=== PATIENT | male | born 1980 | race Caucasian/White ===

== ENCOUNTER → 2020-03-19 | Outpatient (RCR) | payer OTHER ==
--- NOTE | 2020-03-03 12:01 | RADONC ---
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 We will be simulating him for continuation of his concurrent chemoradiation treatment here. He has previously received induction chemo, 2 cycles of CAP, followed by 3 cycles of cis/david last 01/23/20. He started concurrent chemoradiation at [facility] and received 3 fractions (6 Gy) last on 02/29/20 prior to deciding to transfer to [facility] due to the travel distance being prohibitive. Diagnosis/Treatment History Oncologic History Briefly, presented to medical attention in September 2019 with facial swelling and SOB, CT chest was done which showed a large anterior mediastinal mass and regional adenopathy. EBUS done on 10/19/19 revealed SCC concerning for thymic carcinoma. He was deemed inoperable at [facility]. He completed 5 total cycles of chemotherapy last on 01/23/20. He was restaged and a concerning cervical node was biopsied and proven benign. He was again deemed unresectable and therefore was planned for chemoradiation. Planned to go to 66 Gy in 33 fractions with VMAT and concurrent doublet. He received 6 Gy in 3 fractions in [place] prior to transfer here. He will continue chemotherapy in [place]. He was simulated today 03/03/20 with plan to continue per the original [facility] plan here. Interval History Feels tired. Has orthopnea and facial swelling ongoing stable. No hoarseness, no syncope. Able to swallow, appetite and weight stable. Current Therapy Chemoradiation as above Stage [id number] Stage RUTH thymic carcinoma (SCC) Social History: 20 pk year current smoker 2 drinks per week Allergies / Meds Allergies: Coded Allergies: No Known Allergies (Unverified , 03/03/20) Home Meds Reported Medications Escitalopram Oxalate (Lexapro) 10 Mg Tablet, 1 TAB PO DAILY for 30 Days, #30 TAB 03/03/20 Hydroxyzine HCl (Hydroxyzine HCl) 25 Mg Tablet, 25 MG PO QPMP PRN for SLEEP, TAB 03/03/20 Review of Systems Review of Systems Constitutional: Denies: ROS Unabtainable, Chills, Fever, Malaise, Night Sweats, Weakness, Fatigue, Weight Loss, Lethargy, Normal appetite, Other symptoms Eyes: Denies: Pain, Vision change, Conjunctivae inflammation, Eyelid inflammation, Redness, Other HEENT: Denies: Head Aches, Ear Pain, Dysphagia, Sinus Congestion, Post Nasal Drip, Sore Throat, Epistaxis, Other Symptoms Skin: Denies: Rash, Lesions, Jaundice, Bruising, Other Pulmonary: Reports: Dyspnea, Cough; Denies: Pleuritic Chest Pain, Other Symptoms Cardiovascular: Reports: Orthopnea; Denies: Chest Pain, Palpitations, Paroxysmal Noc. Dyspnea, Edema, Lt Headedness, Other Symptoms Gastrointestinal: Denies: Nausea, Vomiting, Abdominal Pain, Diarrhea, Constipation, Melena, Hematochezia, Other Symptoms Hematologic: Denies: Bruising, Bleeding Excessively, Petecchia, Purpura, Enlarged Lymph Nodes, Other Hematologic Endocrine: Denies: Polydipsia, Polyphagia, Polyuria, Heat Intolerance, Cold Intolerance, Other Endocrine Sx Musculoskeletal: Denies: Neck pain, Shoulder pain, Arm pain, Back pain, Hand pain, Leg pain, Foot pain, Joint pain, Muscle pain, Spasms, Gout, Joint sweling, Muscle stiffness, Midthoracic pain, Other Neurological: Denies: Weakness, Numbness, Incoordination, Change in Speech, Confusion, Seizures, Other Symptoms Psych: Denies: Mood Normal, Anxiety, Depression, Memory Issues, Thoughts of Self Harm, Anger, Thoughts of harming Other, Other Psych Physical Examination Vital Signs Not done General Exam: Positive: Alert, Cooperative Eye Exam: Positive: PERRLA, EOMI ENT EXAM: Positive: Pharynx Normal, Other ENT (Facial plethora) Neck Exam: Negative: Lymphadenopathy Chest Exam: Positive: Clear to auscultation, Normal air movement Heart Exam: Positive: Rate Normal, Regular Rhythm Abdomen Exam: Positive: Normal bowel sounds, Soft; Negative: Tenderness Extremity Exam: Negative: Edema Skin Exam: Positive: Nl turgor and temperature Neuro Exam: Positive: Normal Gait, Normal Speech, Cranial Nerves 3-12 NL Psych Exam: Positive: Mental status NL, Mood NL, Anxiety Diagnostic and Laboratory Diagnostic Review Radiologic images, relevant labs and pathology reports were personally reviewed and discussed with Mr. Tinajero. Assessment and Plan Impression Assessment Mr. 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 We will be simulating him for continuation of his concurrent chemoradiation treatment here. He has previously received induction chemo, 2 cycles of CAP, followed by 3 cycles of cis/davdi last 01/23/20. He started concurrent chemoradiation at [facility] and received 3 fractions (6 Gy) last on 02/29/20 prior to deciding to transfer to [facility] due to the travel distance being prohibitive. Performance Status ECOG 1 Plan Simulation today plan to continue as per [facility] RT plan to 66 Gy in 33 fractions w/ VMAT. We should be able to beam match with their [facility]. I will personally edit the contours as appropriate with our new set up. Will receive chemotherapy at [facility]. No immediate concern for SVC symptoms which have been ongoing. Reviewed side effects of treatment. Informed consent for treatment here obtained. Will re-start RT in next 2 days. I will follow him here with a CT chest in 3 months time post-RT Mr. Tinajero was encouraged to call with questions or concerns in the interim period. cc SANDRA Berrios MD Mar 03, 2020 12:01
[~2020-03-19] MED LIST: ACET-897 PO; DECA4TAB PO; ELIQ5TAB PO; GLIP5TAB20 PO; HYDR-3363 PO; LEXA1TAB PO; [UNRECOGNIZED DRUG - OTHER] SC
== END ==
LOC: M ONCR 03-03 11:02
PROVIDERS: ATTEND General Practice
DX: C37 Malignant neoplasm of thymus (principal)

== ENCOUNTER 2020-03-20 09:58 | Emergency (ER) | payer OTHER ==
[~2020-03-20] VITALS: Ht 180.3 cm; Wt 134.6 kg
--- NOTE | 2020-03-20 10:58 | REPVR ---
PROCEDURE INFORMATION: Exam: XR Right Ankle Exam date and time: 03/20/2020 10:43 AM Age: 39 years old Clinical indication: Injury or trauma; Fall; Sprain or strain; Ankle; Right TECHNIQUE: Imaging protocol: XR Right ankle. Views: 3 or more views. COMPARISON: No relevant prior studies available. FINDINGS: Bones/joints: Oblique fracture involving the distal fibular metaphysis with mild diastasis and minimal posterior displacement. No significant angulation deformity. Bones are otherwise intact with preservation of the ankle mortise. No dislocation. Calcaneal spurring. Soft tissues: Generalized soft tissue swelling. IMPRESSION: Oblique fracture involving the distal fibular metaphysis. Electronically signed by: Jacob Crenshaw On 03/20/2020 10:57:59 AM
[2020-03-20 12:15] VITALS: BP 150/92
== END 2020-03-20 12:17 | disposition home or self-care (01) ==
LOC: M ED 09:58
DX: S82.434A Nondisplaced oblique fracture of shaft of right fibula, initial encounter for closed fracture (principal); X50.1XXA Overexertion from prolonged static or awkward postures, initial encounter; Y92.098 Other place in other non-institutional residence as the place of occurrence of the external cause; Z79.899 Other long term (current) drug therapy

== ENCOUNTER 2020-04-18 08:43 | Outpatient (RCR) | payer OTHER ==
--- NOTE | 2020-03-20 10:00 | MEDONCPDOC ---
Med Onc Office Note.txt Date of Visit Mar 20, 2020 Office Note Briefly Mr. Tinajero is a 39 year old man with a diagnosis of T3N1M0 thymic carcinoma, he presented with SVC syndrome sub-acutely. He has been undergoing chemoradiation treatment for this, briefly at [facility], prior to transferring his care here, due to the travel distance. He is at 42 Gy of a planned 66 Gy in 2 Gy daily fractions, he has been receiving concurrent kletsel dehe wintun doublet chemotherapy. He has been struggling with what I believe is right heart failure and near- syncopal events due to tumor obstructing the SVC. He has had multiple falls at home from near-syncopal events and has noted not only facial plethora (which is increasing in time) but also anasarca, which has come on steadily in recent weeks. He was started on lasix by his PCP last week at 40 mg daily, he continued to retain significant fluid and swelling increased. I increased the dose to 80 mg BID for the past 3 days concluding on Tuesday and there was some improvement with this in LE edema particularly. He has taken 80 mg lasix today. Cr from 03/17/20 was WNL. He is anticoagulated on eliquis. I saw him today after radiation treatment as our therapists noted he fell attempting to get on our treatment table. He told me he feels lousy, he has 9/10 pain in his right leg, which now is swollen > left and painful when he moves his foot. He has no hoarseness. He has CASTILLO and orthopnea. On exam he has a positive Charlotte's sign on the right. 2+ edema RLE, 1+ LLE, 1+ edema BL UE, facial plethora. I am concerned for his safety given the near syncope and falling. He is concerned as well. I think his current condition warrants ED evaluation and likely admission. His pain in the leg may be due to clot. His fluid status should be assessed formally and he may benefit continued aggressive diuresis. I suspect he has pulmonary edema. He also should undergo an echocardiogram to assess right heart function and the degree of SVC obstruction. A formal opinion from either vascular surgery or interventional radiology on the utility of SVC stenting in this case may be appropriate as SVC stenting in select patients has been useful for symptom relief. I will continue to follow him and we can continue his radiation while he is in the hospital, which ultimately is his best chance for cure and watermelon inspector symptom relief if the tumor responds to therapy. CC TO: Primary Care Provider: PCP,Unknown Referring Provider: SANDRA SANTAMARIA MD Mar 20, 2020 10:00
[2020-03-24 13:03] LABS: BASO % 0.3 % (0.0-1.0); EOS # 0.3 10^3/uL (0.0-0.5); EOS % 4.7 % (0.0-3.0); HEMATOCRIT 42.6 % (42.0-52.0); HEMOGLOBIN 13.5 g/dl (13.5-17.5); LYMPH # 0.6 10^3/uL (1.5-5.0); LYMPH % 9.7 % (24.0-44.0); MEAN CORPUSCULAR HEMOGLOBIN 31.4 pg (27.0-33.0); MEAN CORPUSCULAR HGB CONC 31.7 g/dl (32.0-36.5); MEAN CORPUSCULAR VOLUME 99.1 fl (80.0-96.0); MONO # 0.5 10^3/uL (0.0-0.8); MONO % 9.2 % (0.0-5.0); NEUTROPHILS # 4.4 10^3/uL (1.5-8.5); NEUTROPHILS % 75.9 % (36.0-66.0); PLATELET COUNT, AUTOMATED 172 10^3/uL (150-450); WHITE BLOOD COUNT 5.8 10^3/uL (4.0-10.0)
[2020-03-24 13:24] LABS: ALBUMIN 3.6 GM/DL (3.2-5.2); ALT/SGPT 46 U/L (12-78); BILIRUBIN,TOTAL 0.3 MG/DL (0.2-1.0); BLOOD UREA NITROGEN 18 MG/DL (7-18); CALCIUM LEVEL 9.4 MG/DL (8.5-10.1); CARBON DIOXIDE LEVEL 30 MEQ/L (21-32); CHLORIDE LEVEL 108 MEQ/L (98-107); CREATININE FOR GFR 0.71 MG/DL (0.70-1.30); GLOMERULAR FILTRATION RATE > 60.0 (>60); GLUCOSE, FASTING 128 MG/DL (70-100); POTASSIUM SERUM 4.2 MEQ/L (3.5-5.1); SODIUM LEVEL 141 MEQ/L (136-145)
== END 2020-04-19 ==
LOC: M ONCR 08:43
PROVIDERS: ATTEND General Practice
DX: C37 Malignant neoplasm of thymus (principal)

== ENCOUNTER 2020-06-26 12:05 | Emergency (ER) | payer OTHER ==
[~2020-06-26] VITALS: Ht 177.8 cm; Wt 135.8 kg
[2020-06-26] MEDS ORDERED: ADME100I2 (12:24)
[2020-06-26] MEDS ORDERED: TORS20TA2 (12:24)
[2020-06-26] MEDS ORDERED: ATIV1TAB10 (12:24)
[2020-06-26] MEDS ORDERED: ONDA8TAB10 (12:24)
[2020-06-26 16:30] VITALS: BP 136/88
== END 2020-06-26 16:33 | disposition home or self-care (01) ==
LOC: M ED 12:05
DX: F41.9 Anxiety disorder, unspecified (principal); C37 Malignant neoplasm of thymus; I47.1 Supraventricular tachycardia; E11.9 Type 2 diabetes mellitus without complications; F17.200 Nicotine dependence, unspecified, uncomplicated; Z79.899 Other long term (current) drug therapy; Z79.01 Long term (current) use of anticoagulants; Z79.4 Long term (current) use of insulin

== ENCOUNTER → 2020-08-06 | Outpatient (CLI) | payer OTHER ==
[~2020-08-06] MED LIST changes: +ADME100I2; +ATIV1TAB10; +ONDA8TAB10; +SODIUM CHLORIDE 0.9% INJ 10 ML SYR IV PRN; +TORS20TA2; +TORS20TA2 PO
[2020-08-06 14:28] LABS: BASO % 0.3 % (0.0-1.0); EOS # 0.1 10^3/uL (0.0-0.5); EOS % 1.9 % (0.0-3.0); HEMATOCRIT 40.3 % (42.0-52.0); HEMOGLOBIN 12.8 g/dl (13.5-17.5); LYMPH # 0.9 10^3/uL (1.5-5.0); LYMPH % 11.7 % (24.0-44.0); MEAN CORPUSCULAR HEMOGLOBIN 29.3 pg (27.0-33.0); MEAN CORPUSCULAR HGB CONC 31.8 g/dl (32.0-36.5); MEAN CORPUSCULAR VOLUME 92.2 fl (80.0-96.0); MONO # 0.7 10^3/uL (0.0-0.8); MONO % 9.6 % (2.0-8.0); NEUTROPHILS # 5.6 10^3/uL (1.5-8.5); NEUTROPHILS % 76.4 % (36.0-66.0); PLATELET COUNT, AUTOMATED 317 10^3/uL (150-450); RED BLOOD COUNT 4.37 10^6/uL (4.30-6.10); WHITE BLOOD COUNT 7.4 10^3/uL (4.0-10.0)
[2020-08-06 15:05] LABS: ALBUMIN 3.7 GM/DL (3.2-5.2); ALT/SGPT 39 U/L (12-78); BILIRUBIN,TOTAL 0.2 MG/DL (0.2-1.0); BLOOD UREA NITROGEN 18 MG/DL (7-18); CALCIUM LEVEL 9.5 MG/DL (8.5-10.1); CARBON DIOXIDE LEVEL 30 MEQ/L (21-32); CHLORIDE LEVEL 103 MEQ/L (98-107); CHOLESTEROL RISK RATIO 4.405 (<5); CREATININE FOR GFR 0.82 MG/DL (0.70-1.30); FREE T4 1.13 NG/DL (0.76-1.46); GLOMERULAR FILTRATION RATE > 60.0 (>60); GLUCOSE, FASTING 142 MG/DL (70-100); POTASSIUM SERUM 3.4 MEQ/L (3.5-5.1); SODIUM LEVEL 138 MEQ/L (136-145); THYROID STIMULATING HORMONE 1.38 uIU/ML (0.358-3.740); TOTAL PROTEIN 8.5 GM/DL (6.4-8.2)
--- NOTE | 2020-08-06 15:26 | RADONC ---
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 He received induction chemotherapy at [facility], 2 cycles of CAP and 3 cycles of cisplatin/etoposide last on 01/23/20. He began chemoradiation at [facility] but transferred care to [facility] due to prohibitive distance. He completed 66 Gy in 33 fractions to the mediastinal disease on 04/18/20 (6 Gy in 3 fractions received at [facility] prior to transfer). He received carbo/taxol weekly with radiation. Diagnosis/Treatment History Oncologic History Presented to medical attention in September 2019 with facial swelling and SOB, CT chest was done which showed a large anterior mediastinal mass and regional adenopathy. EBUS done on 10/19/19 revealed SCC concerning for thymic carcinoma [id number] stage RUTH. He was deemed inoperable at [facility]. He completed 5 total cycles of chemotherapy last on 01/23/20. He was restaged and a concerning cervical node was biopsied and proven benign. He was again deemed unresectable and therefore was planned for chemoradiation. Planned to go to 60 Gy in 30 fractions with VMAT and concurrent doublet. He received 6 Gy in 3 fractions in [place] prior to transfer here. He was simulated 03/03/20 with plan to continue per the original [facility] volumes here, dose however increased to 66 Gy in 33 fractions total. Treatment resumed 03/10/20-04/18/20. His course was complicated by anasarca from his SVC syndrome requiring diuretics, as well as left ankle fracture secondary to a mechanical fall. He considered enrolling on a trial at the [facility] but ultimately decided against. He consulted with medical oncology (Dr. Duque) at [facility] on 04/25/20 and the recommendation was for close surveillance post chemoradiation with consideration of octreoscan to see if octreotide is indicated, or targeted therapy if [facility] CDx shows actionable alteration as we order now (do not have results in [facility] records, would have to request). Further chemotherapy option includes gemcitabine. Cautious with pembrolizumab/durvalumab. Recent Data: 07/29/20 CT chest abdomen pelvis ([facility]) Interval decrease in size of involved mediastinal nodes. Largest right paratracheal 2.9 x 2.6 cm (from 3.4 x 3.5 cm on 03/03/20 CT) Primary anterior mediastinal mass is relatively stable compared to priors from Fall 2019 No evidence of infradiaphragmatic disease Interval History Vijay is here alone today. Reports he had COVID in June 2020, did not have pulmonary symptomatology but did lose taste and smell sensations felt fatigued for several weeks. Has not established with cardiology. Notes ongoing facial swelling, no voice changes, or dysphagia. No syncope. He has been experiencing poor sleep and sleep walking, excessive daytime tiredness. Frequent interrupted sleep at night. Is able to sleep recumbent, prior to treatment was only able to sleep in chair upright. He has no pain in the chest or neck. His odynophagia is resolved. He had a sleep study scheduled by PCP, which was put off due to COVID. He has poor appetite. Continues on torsemide 60 mg daily. Current Therapy Surveillance Stage Stage RUTH thymic carcinoma [id number] stage RUTH Social History: 20 pack year current smoker 2 alcoholic drinks per week Allergies / Meds Allergies: Coded Allergies: No Known Allergies (Unverified , 03/03/20) Home Meds Active Scripts Torsemide (Torsemide) 20 Mg Tablet, 60 MG PO DAILY, #90 TAB 3 Refills Prov:SANDRA SANTAMARIA MD 08/01/20 Reported Medications Ondansetron HCl (Ondansetron HCl) 8 Mg Tablet 06/26/20 Lorazepam (Ativan) 0.5 Mg Tablet 06/26/20 Insulin Lispro (Admelog Solostar) 100 Unit/1 Ml Insuln.pen, 10 UNITS DAILY 06/26/20 Acetaminophen (Tylenol Extra Strength) 500 Mg Tablet, 1000 MG PO, TAB 03/17/20 Glipizide (Glipizide ER) 5 Mg Tab.er.24, 1 MG PO DAILY, TAB 03/17/20 Apixaban (Eliquis) 5 Mg Tablet, 5 MG PO DAILY, TAB 03/17/20 Escitalopram Oxalate (Lexapro) 10 Mg Tablet, 25 MG PO DAILY for 30 Days, #30 TAB 03/03/20 Review of Systems Review of Systems Constitutional: Reports: Malaise, Fatigue; Denies: Chills, Fever, Night Sweats Eyes: Denies: Pain, Vision change HEENT: Denies: Head Aches, Dysphagia, Sore Throat Skin: Denies: Rash Pulmonary: Reports: Dyspnea; Denies: Cough, Pleuritic Chest Pain Cardiovascular: Reports: Edema; Denies: Chest Pain, Palpitations, Orthopnea, Lt Headedness Gastrointestinal: Denies: Nausea, Vomiting, Abdominal Pain Hematologic: Denies: Bruising Musculoskeletal: Denies: Neck pain, Back pain Neurological: Denies: Weakness, Numbness, Change in Speech Psych: Reports: Mood Normal Physical Examination Vital Signs Ht 71" Wt 273 lbs (from 295 pm 04/07/20) T 98 P 110 RR 20 BP 119/82 O2 97% Pain 0 Fatigue 1 General Exam: Positive: Alert, Cooperative; Negative: No Acute Distress Eye Exam: Positive: PERRLA, EOMI ENT EXAM: Positive: Mucous membr. moist/pink, Pharynx Normal; Negative: Atraumatic (There is right lateral tongue healed laceration (said he bit his tongue)), Pharyngeal Edema Neck Exam: Positive: JVD, +2 carotid pulse wo bruit (There is facial and neck plethora, marked JVD. The edema in the neck is not pitting. ), Other; Negative: Thyromegaly, Lymphadenopathy Chest Exam: Positive: Clear to auscultation, Normal air movement; Negative: Rales, Wheezing Heart Exam: Positive: Rate Normal, Regular Rhythm Abdomen Exam: Positive: Normal bowel sounds, Soft Extremity Exam: Positive: Normal pulses; Negative: Edema (Trace ankle edema BL) Skin Exam: Positive: Nl turgor and temperature Neuro Exam: Positive: Normal Gait, Normal Speech, Cranial Nerves 3-12 NL Psych Exam: Positive: Mental status NL Diagnostic and Laboratory Diagnostic Review Radiologic images, relevant labs and pathology reports were personally reviewed and discussed with Mr. Tinajero. Assessment and Plan Impression Assessment Mr. 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 He received induction chemotherapy at [facility], 2 cycles of CAP and 3 cycles of cisplatin/etoposide last on 01/23/20. He began chemoradiation at [facility] but transferred care to [facility] due to prohibitive distance. He completed 66 Gy in 33 fractions to the mediastinal disease on 04/18/20 (6 Gy in 3 fractions received at [facility] prior to transfer). He received carbo/taxol weekly with radiation. His scans from 07/29/20 are reassuring as they show stability of the primary mass and shrinkage of the involved mediastinal nodes in the absence of regional or distant progression. We will continue surveillance, next in 3 months time. With respect to his peripheral edema which has been a dominant symptom for him since presentation, I think he looks much better today. His weight is down 21 lbs since March, I think most of this is fluid weight. I would continue torsemide 60 mg daily for now. I will check CMP/CBC/TFTs/NT-ProBNP today to glean how he is tolerating diuresis and also set him up for cardiology evaluation (referral was placed but never got scheduled, will attempt to facilitate again). I think his sleep disturbances could be acquired ARSENIO from the persistent SVC syndrome and facial swelling. I encouraged him to reschedule the sleep study his PCP ordered for him. Per his [facility] consultation, no firm recommendation for adjuvant therapy in the absence of progression was given, I agree with close surveillance for now, as he is clinically better than prior to his chemoradiation. Performance Status ECOG [address] chest abdomen pelvis in 3 months time Re-referral to cardiology CMP/CBC/TFTs/NT-proBNP Mr. Tinajero was encouraged to call with questions or concerns in the interim period. Billing Statement Total time of [39] minutes was spent preparing for the visit [5], obtaining HPI [5], examining the patient [3], reviewing diagnostic tests [5], discussing management options [6], coordinating care [4], and writing this note [11]. SANDRA SANTAMARIA MD Aug 06, 2020 15:26
== END ==
LOC: M ONCR 13:15
PROVIDERS: ATTEND General Practice
DX: C37 Malignant neoplasm of thymus (principal)
CPT/HCPCS: 36591; 80053; 80061; 83880; 84439; 84443; 85025; G0463